=== PATIENT | female | born 1980 | race Caucasian/White ===

== ENCOUNTER → 2016-07-05 15:04 | Outpatient (CLI) | payer OTHER | END | disposition home or self-care (01) | LOC: D.MRI 15:04 | DX: S92.101A Unspecified fracture of right talus, initial encounter for closed fracture (principal) ==

== ENCOUNTER → 2019-04-07 07:55 | Outpatient (CLI) | payer OTHER | END | disposition home or self-care (01) | LOC: D.MRI 07:55 | PROVIDERS: ATTEND Family Medicine | DX: M54.42 Lumbago with sciatica, left side (principal); M62.830 Muscle spasm of back; M54.5 Low back pain ==

== ENCOUNTER → 2019-06-09 09:53 | Outpatient (CLI) | payer SELFPAY | END | disposition home or self-care (01) | LOC: D.MRI 09:53 | PROVIDERS: ATTEND Orthopaedic Surgery | DX: S43.015S Anterior dislocation of left humerus, sequela (principal) ==

== ENCOUNTER 2019-09-03 05:30 | Day surgery (SDC) | payer OTHER ==
[2019-09-02 13:50] LABS: HEMATOCRIT 43.3 % (36.0-48.0); MCHC 32.3 g/dL (31.0-37.0); MCV 89.8 fL (80.0-100.0); MEAN PLATELET VOLUME 8.9 fL (7.4-10.4); RBC 4.82 10x6/uL (4.00-5.40); RDW 12.8 % (11.5-14.5); WBC 5.9 10x3/uL (4.8-10.8)
[~2019-09-03] VITALS: Ht 170.2 cm; Wt 83.9 kg
--- NOTE | ~2019-09-03 | OP ---
PATIENT NAME: SHADI DICKERSON MEDICAL RECORD: [id number] :82 LOCATION:D.OPS ADMISSION DATE: SURGEON: CAROL CORNEJO MD DATE OF OPERATION: 09/03/2019 PREOPERATIVE DIAGNOSES: Superior labral anterior-posterior lesion of the left shoulder with impingement syndrome. POSTOPERATIVE DIAGNOSES: Superior labral anterior-posterior lesion of the left shoulder with impingement syndrome. PROCEDURES: 1. Arthroscopic SLAP repair of the left shoulder. 2. Arthroscopic distal clavicle excision done through separate incision of the left shoulder. 3. Arthroscopic subacromial decompression, acromioplasty and bursectomy. SURGEON: Carol Cornejo MD ANESTHESIA: KALPESH Sam INTRAOPERATIVE COMPLICATIONS: None. SUMMARY OF PATHOLOGIC FINDINGS: Consistent with the preoperative diagnosis, the patient had a bicipital labral tear from anterior to superior. This was fixed nicely as well as a downward sloping acromion and acromioclavicular arthritis seen. OPERATIVE SUMMARY IN DETAIL: After obtaining appropriate preoperative orthopedic surgery consent as well as anesthetic consultation, evaluation and clearance, the patient was brought to the operating room and placed on the operating table in supine position. After adequate general laryngeal mask airway was administered, the patient was placed in a left lateral decubitus position. All pressure points were well padded to include down leg peroneal pad as well as axillary roll. The patient was held firmly to the operating table using the vacuum pack suction system. She was placed in a right lateral decubitus position. Left upper extremity and shoulder were prepped and draped in routine sterile fashion. The arm was held in the Arthrex traction boom at 30 degrees of forward flexion, 30 degrees of abduction, 10 pounds of traction laterally. Arthroscopy was established in the glenohumeral joint from the posterior portal. Anterior portal was established in the anterior safe interval. Diagnostic arthroscopy showed the patient to have a bicipital labral complex tear that is SLAP lesion consistent with a preoperative MRI and patient's symptoms. Accessory tertiary portal was created through which the area of the SLAP lesion was prepared for SLAP repair, that is a resector was utilized to gently decorticate the superior aspect of the glenoid and then under direct arthroscopic visualization the SLAP was repaired with arthroscopic anchors that is 2.7 PushLock from Arthrex using the labral tape, two anterior to the biceps and one posterior to the biceps tendon resulted in excellent anatomic orthodoxy of the labrum back to the glenoid. Having completed this, attention was turned to the subacromial space. While in the subacromial space, accessory lateral portal was used to place the [place] tissue ablation system, which was then utilized to denude the undersurface of the acromion of all soft tissue elements and release the coracoacromial ligament. A 5.0 barrel bur was then used to perform acromioplasty at the level of acromioclavicular joint. Having OPERATIVE REPORT [id number] SHADI DICKERSON completed this, a separate anterior arthroscopic portal was created through which the distal clavicle was excised for 1 cm. Having completed this, all superficial bursa was taken down with a resector, both anterior and posterolaterally as well as superiorly. At this point, arthroscopy portals were closed in routine interrupted fashion using 4-0 Prolene. Sterile dressings were applied. The patient was awakened and taken to recovery room in stable condition. All final needle and sponge counts were correct. TRANSINT:[id number] Voice Confirmation ID: [id number] DOCUMENT ID: [id number] CLEMENTE LUNA, CAROL MITTAL CC: [id number] DICTATION DATE: 09/11/19 1200 YARD OPERATOR: 09/11/19 1254 [facility] 09/03/19 [facility] [address] [place] [address]
[~2019-09-03 05:30] MED LIST: BISOPROLOL FUMAR5 MG PO; CYCLOBENZAPRINE10 MG PO; EFFEXOR100 MG PO; PEPCID AC20 MG PO
[2019-09-03 05:58] VITALS: BP 119/73; Ht 170.2 cm; Wt 83.9 kg
[2019-09-03 06:08] LABS: HCG URINE NEGATIVE (NEGATIVE)
[2019-09-03] MEDS ORDERED: HYDROCODON-ACE1 EA10 PO (08:12)
== END 2019-09-03 09:48 | disposition home or self-care (01) ==
LOC: D.OPS 05:30 → D.PAN 07:30 → D.OPS 07:30 → D.PAN 08:00 → D.OPS 09:48
PROVIDERS: Anesthesiology; ATTEND Orthopaedic Surgery
DX: S43.402A Unspecified sprain of left shoulder joint, initial encounter (principal); S43.005A Unspecified dislocation of left shoulder joint, initial encounter; X58.XXXA Exposure to other specified factors, initial encounter; S43.432A Superior glenoid labrum lesion of left shoulder, initial encounter; M75.42 Impingement syndrome of left shoulder

== ENCOUNTER → 2019-12-11 10:59 | Outpatient (CLI) | payer OTHER ==
[2019-09-03 05:58] VITALS: BMI 29.0
[~2019-12-11 10:59] MED LIST changes: +HYDROCODON-ACE1 EA10 PO
== END | disposition home or self-care (01) ==
LOC: D.MRI 10:59
PROVIDERS: ATTEND Orthopaedic Surgery
DX: S43.432A Superior glenoid labrum lesion of left shoulder, initial encounter (principal)

== ENCOUNTER 2020-01-04 07:10 | Day surgery (SDC) | payer OTHER ==
[2020-01-01 09:23] LABS: HEMATOCRIT 39.7 % (36.0-48.0); MCH 29.7 pg (26.0-34.0); MCHC 32.7 g/dL (31.0-37.0); MCV 90.8 fL (80.0-100.0); MEAN PLATELET VOLUME 9.4 fL (7.4-10.4); RBC 4.37 10x6/uL (4.00-5.40); RDW 12.8 % (11.5-14.5); WBC 4.7 10x3/uL (4.8-10.8)
[~2020-01-04] VITALS: Ht 170.2 cm; Wt 83.9 kg
[2020-01-04 07:40] VITALS: BP 112/69; Ht 170.2 cm; Wt 83.9 kg
[2020-01-04 07:45] LABS: HCG URINE NEGATIVE (NEGATIVE)
[2020-01-04] MEDS ORDERED: HYDROCODON-ACE1 EA10 PO (09:37)
--- NOTE | 2020-01-04 09:53 | NUR ---
PATIENT DENIES PAIN.
--- NOTE | 2020-01-04 12:45 | NUR ---
IV D/C'D WITH CANNULA INTACT, PRESSURE HELD AND DRSG PLACED. DISCHARGE INSTRUCTIONS GIVEN. PT VERBALIZED AN UNDERSTANDING, SHE HAS UNDERGONE SAME PROCEDURE RECENTLY. DISCHARGED IN STABLE CONDITION AND WITHOU C/O
--- NOTE | 2020-01-21 11:33 | OP ---
PATIENT NAME: SHADI DICKERSON MEDICAL RECORD: [id number] :82 LOCATION:D.OPS ADMISSION DATE: SURGEON: CAROL CORNEJO MD DATE OF OPERATION: 01/04/2020 PREOPERATIVE DIAGNOSES: 1. Left shoulder impingement syndrome. 2. Left shoulder biceps tendinitis. 3. Labral tearing of the left shoulder. 4. Adhesive capsulitis of the left shoulder. 5. Acromioclavicular arthritis of the left shoulder. POSTOPERATIVE DIAGNOSES: 1. Left shoulder impingement syndrome. 2. Left shoulder biceps tendinitis. 3. Labral tearing of the left shoulder. 4. Adhesive capsulitis of the left shoulder. 5. Acromioclavicular arthritis of the left shoulder. PROCEDURES: 1. Arthroscopic biceps tenotomy. 2. Arthroscopic distal clavicle excision done through separate incision. 3. Arthroscopic labral debridement. 4. Arthroscopic subacromial decompression with acromioplasty and bursectomy. 5. Manipulation under anesthesia. SURGEON: Carol Cornejo MD ANESTHESIA: General. INTRAOPERATIVE COMPLICATIONS: None. SUMMARY OF PATHOLOGIC FINDINGS: Consistent with the patient's preoperative diagnosis, she had severe adhesive capsulitis with good release associated with a manipulation. 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 OPERATIVE SUMMARY IN DETAIL: After obtaining the appropriate preoperative orthopedic surgery consent as well as anesthetic consultation, evaluation and clearance, the patient was brought to the operating room and placed on the operating table in supine position. After adequate general laryngeal mask was administered, the patient was placed in a right lateral decubitus position. All pressure points were well padded to include down leg peroneal pad as well as axillary roll. The patient was held firmly to the operating table using the vacuum pack suction system. The patient's left upper extremity and shoulder were then prepped and draped in routine sterile fashion. The arm was held in the Arthrex traction boom at 30 degrees of forward flexion, 30 degrees of abduction with 10 pounds of traction laterally. At this point, the appropriate timeout was taken and agreed upon by all given the patient's unique identifiers. Arthroscopy was established in the glenohumeral joint from posterior portal. Anterior portal was established in the anterior safe interval. Diagnostic arthroscopy did reveal the above findings. OPERATIVE REPORT [id number] TUANSHADI WATSON Prior to proceeding with arthroscopy, the patient's scapula was stabilized and the shoulder was manipulated first in abduction followed by external rotation, internal rotation, forward flexion and abduction. Her arm was then put back into traction where arthroscopy was then established using a posterior portal. A substantial amount of bleeding from the manipulation was drained. Anterior portal was then established in the anterior safe interval. Diagnostic arthroscopy did show the above findings. Partial labral debridement was done both circumferentially. There were no labral disconnection from the glenoid itself. At this point, the [place] tissue ablation system was utilized to perform a tenotomy at the bicipital labral junction. Having completed this, the rotator cuff was inspected in its entirety, found not to have any undersurface rotator cuff tearing. Attention was then turned to the subacromial space. While in the subacromial space, coracoacromial ligament was found to be grossly denuded. The undersurface of the acromion was denuded of all soft tissue elements. A 5-0 barrel bur was then used to perform acromioplasty at the level of the acromioclavicular joint. Having completed this, attention was turned to the distal clavicle under separate arthroscopic portal under direct arthroscopic visualization. Distal clavicle was excised for 1 cm. All subacromial bursa was taken down superiorly, anteriorly, laterally and posteriorly. At this point, arthroscopy portals were closed in routine interrupted fashion using 4-0 Prolene. Sterile dressings were applied. The patient was awakened and taken to recovery room in stable condition. All final needle and sponge counts were correct. TRANSINT:[id number] Voice Confirmation ID: [id number] DOCUMENT ID: [id number] CLEMENTE LUNA, CAROL MITTAL at 1133 CC: [id number] DICTATION DATE: 01/21/20931 QUILL MACHINE TENDER: 01/21/20 1006 [facility] 01/04/20 [place] [address]
== END 2020-01-04 11:20 | disposition home or self-care (01) ==
LOC: D.OPS 07:10 → D.PAN 09:00 → D.OPS 10:45 → D.PAN 10:45 → D.OPS 11:20
PROVIDERS: Anesthesiology; ATTEND Orthopaedic Surgery
DX: M75.42 Impingement syndrome of left shoulder (principal); M75.22 Bicipital tendinitis, left shoulder; M75.02 Adhesive capsulitis of left shoulder; S43.432A Superior glenoid labrum lesion of left shoulder, initial encounter; X58.XXXA Exposure to other specified factors, initial encounter; M25.512 Pain in left shoulder; R25.2 Cramp and spasm; M25.572 Pain in left ankle and joints of left foot; S82.65XA Nondisplaced fracture of lateral malleolus of left fibula, initial encounter for closed fracture; M19.012 Primary osteoarthritis, left shoulder

== ENCOUNTER → 2020-06-06 12:50 | Outpatient (CLI) | payer OTHER ==
[2020-01-04 07:40] VITALS: BMI 29.0
--- NOTE | ~2020-06-06 | HEMODYNAMI ---
PATIENT:SHADI DICKERSON MEDICAL RECORD: [id number] : 82 LOCATION:DIOR ADMISSION DATE: 06/06/20 Generatedon:113:37 Patient name: SHADI DICKERSON Patient #: [id number] SSN: : 1980 Date of study: 06/06/2020 Page: Of Hemodynamic Procedure Report Patient Data Patient Demographics Procedure consent was obtained First Name: SHADI Gender: Female Last Name: TUAN : 1980 Middle Initial: WALTER Age: 39 year(s) Patient #: [id number] Race: Unknown Additional ID: [id number] Contact details Address: [address] [place] [address] ROAD State: [place] City: [facility] Zip code: [address] Past Medical History Allergies Allergen Reaction Date Comments Reported Sulfa drugs 04/25/2020 Sulfa drugs 06/06/2020 Admission Admission Data Admission Date: 06/06/2020 Admission Time: 12:50 Procedure Procedure Types Cath Procedure Peripheral Cath Diagnostic Procedure Miscellaneous Aspiration/Injection (Joint) Procedure Description Procedure Date Procedure Date: 06/06/2020 Procedure Start Time: 13:28 Procedure End Time: 13:36 Procedure Staff Name Function Alfredo Fu MD Performing Physician OFE CHATMAN RT Monitor Frank Guerrero RT Monitor Procedure Data Cath Procedure Fluoroscopy Diagnostic fluoroscopy Total fluoroscopy Time: 0.4 time: 0.4 min min Hemodynamics Rest Pre Cath Intra NCS Post Cath Procedure Log Time Note 13:16:49 SAFE-T PLUS MYELOGRAM TRAY opened to sterile field. 13:18:04 Patient received from Outpatients to IR Alert and oriented. Tansferred to table in Supine position. 13:18:06 Signed procedure consent form obtained from patient. 13:18:06 Warm blankets applied, and kwan hugger turned on for patient comfort. 13:18:07 Correct patient and procedure confirmed by team. 13:18:17 - 13:18:19 Pre-procedure instructions explained to patient. 13:18:19 Pre-op teaching completed and patient verbalized understanding. 13:18:28 Patient allergic to Sulfa drugs 13:18:35 Is patient on blood thinner?No 13:18:43 Frank Yolanda RT (R) (CV) sent for patient. Start room use. 13:18:44 Left Shoulder was prepped with betadine and draped in sterile fashion. 13:20:27 Patient not . Patient has IUD. 13:20:51 - 13:24:00 Physician arrived 13:24:00 --------ALL STOP TIME OUT------ 13:24:02 Final Timeout: patient, procedure, and site verified with staff and physician. All members of the team are in agreement. 13:24:08 Left Shoulder site verified by team. 13:25:52 Procedure started. 13:25:52 Full Disclosure recording started 13:28:37 Local anesthetic to Left Shoulder with Lidocaine 1% by Alfredo Fu MD.INITIAL ACCESS ONLY 13:34:22 Procedure ended.(Physican Out) 13:34:39 Fluoroscopy time 00.40 minutes. 13:34:41 Dose Area Product 1 mGy/cm. 13:34:48 Post procedure instruction explained to patient.Patient verbalizes understanding. 13:34:57 Post-op/insertion site Left Shoulder dressed using a Bandaid. 13:35:11 Procedure and supply charges have been captured, reviewed, submitted an d are correct. 13:36:40 Procedure ended. 13:36:40 Full Disclosure recording stopped Device Usage Item Name Manufacture Quantity Catalog Hospital Part Current Minimal Lot# / Number Charge Number Stock Stock Serial# Code SAFE-T CareFusion 1 [id number] PLUS MYELOGRAM TRAY Signature Audit [place] Stage Time Signature Unsigned Intra-Procedure 06/06/2020 OFE CHATMAN RT 1:37:03 PM (R) [facility] [address] [place] [address]
== END | disposition home or self-care (01) ==
LOC: D.RAD 12:50 → D.SP 12:50 → D.RAD 13:00
DX: M75.02 Adhesive capsulitis of left shoulder (principal); S43.492D Other sprain of left shoulder joint, subsequent encounter

== ENCOUNTER → 2020-08-30 07:22 | Day surgery (SDC) | payer OTHER ==
[2020-01-04 07:40] VITALS: BMI 29.0
--- NOTE | ~2020-08-30 | HEMODYNAMI ---
PATIENT:SHADI DICKERSON MEDICAL RECORD: [id number] : 82 LOCATION:RICARDO ADMISSION DATE: 08/30/20 Generatedon:18:31 Patient name: SHADI DICKERSON Patient #: [id number] SSN: : 1980 Date of study: 08/30/2020 Page: Of Hemodynamic Procedure Report Patient Data Patient Demographics First Name: SHAID Gender: Female Last Name: TUAN : 1980 Middle Initial: WALTER Age: 39 year(s) Patient #: [id number] Race: Unknown Additional ID: [id number] Contact details Address: [address] [place] [address] ROAD State: [place] City: [facility] Zip code: [address] Past Medical History Allergies Allergen Reaction Date Comments Reported Sulfa drugs 04/25/2020 Sulfa drugs 06/06/2020 Sulfa drugs 08/30/2020 Admission Admission Data Admission Date: 08/30/2020 Admission Time: 7:22 Procedure Procedure Types Cath Procedure Peripheral Cath Diagnostic Procedure Miscellaneous Aspiration/Injection (Joint) Procedure Description Procedure Date Procedure Date: 08/30/2020 Procedure Start Time: 8:21 Procedure Staff Name Function Chang Barry MD Performing Physician Frank Guerrero RT Monitor Martha Martinez RT Monitor Procedure Data Cath Procedure Fluoroscopy Diagnostic fluoroscopy Total fluoroscopy Time: 0 time: 0 min min Diagnostic fluoroscopy Total fluoroscopy dose: 3 dose: 3 mGy mGy Contrast Material Contrast Material Type Amount (ml) Isovue 200 5 Hemodynamics Rest Pre Cath Intra NCS Post Cath Procedure Log Time Note 8:07:02 SAFE-T PLUS MYELOGRAM TRAY opened to sterile field. 8:08:39 Time tracking: Regular hours (M-F 7:00 - 5:00) 8:08:56 Patient received from Outpatients to IR Alert and oriented. Tansferred to table in Supine position. 8:09:09 Patient allergic to Sulfa drugs 8:09:31 Is patient on blood thinner?No 8:09:50 Left Shoulder was prepped with betadine and draped in sterile fashion. 8:09:53 8:20:58 Physician arrived 8:20:59 --------ALL STOP TIME OUT------ 8:20:59 Final Timeout: patient, procedure, and site verified with staff and physician. All members of the team are in agreement. 8:21:17 Sedation plan: Local Anesthetic Medication:Lidocaine 8:21:33 LT SHOULDER SITE VERIFIED WITH TEAM 8::52 Procedure started. 8::52 Full Disclosure recording started 8::58 Local anesthetic to Left Shoulder with Lidocaine 1% by Chang Barry MD.INITIAL ACCESS ONLY 8:28:34 Procedure ended.(Physican Out) 8:29:03 Contrast amount:Isovue 200 5ml. 8:29:16 Fluoroscopy time 00.00 minutes. 8:29:19 Fluoroscopy dose: 3 mGy 8:29:19 Flurop Dose total: 3 8:29:42 SITE STABLE BANDAIDE APPLIED PT SENT HOME Device Usage Item Name Manufacture Quantity Catalog Hospital Part Current Minimal Lot# / Number Charge Number Stock Stock Serial# Code SAFE-T CareFusion 1 [id number] PLUS MYELOGRAM TRAY Signature Audit [place] Stage Time Signature Unsigned Intra-Procedure 08/30/2020 Frank 8:31:46 AM Yolanda RT (R) (CV) [facility] [address] [place] [address]
== END | disposition home or self-care (01) ==
LOC: D.RAD 07:22
PROVIDERS: ATTEND Orthopaedic Surgery
DX: M75.02 Adhesive capsulitis of left shoulder (principal); S43.492D Other sprain of left shoulder joint, subsequent encounter